=== PATIENT | female | born 1995 | race Two or more races ===

== ENCOUNTER 2020-11-14 12:08 | Emergency (ER) | payer MEDICAID ==
[~2020-11-14] VITALS: Ht 165.1 cm; Wt 69.9 kg
[2020-11-14 12:18] VITALS: BP 115/79
--- NOTE | 2020-11-14 12:24 | NUR ---
ED Nurse Note: Patient from home and walked in due to abscess on her right inner thigh x 1 month. Pt also c/o vaginal disharge x 1 month. Pt is AAO x4, ambulatory.
[2020-11-14 12:54] LABS: APPEARANCE,URINE SLIGHTLY CLOUDY; BILIRUBIN, URINE NEGATIVE (NEGATIVE); COLOR,URINE PALE YELLOW; GLUCOSE, URINE (UA) NEGATIVE (NEGATIVE); KETONES,URINE NEGATIVE (NEGATIVE); LEUKOCYTE ESTERASE ,URINE 1+ (NEGATIVE); NITRITE,URINE NEGATIVE (NEGATIVE); PH,URINE 6.5 (4.5-8.0); PROTEIN,URINE NEGATIVE (NEGATIVE); UROBILINOGEN,URINE NORMAL MG/DL (0.0-1.0)
[2020-11-14] MEDS ORDERED: Lidocaine 1% MPF 10mg/ml 5ml INJ ONE (13:30)
[2020-11-14] MEDS ORDERED: cefTRIAXone 500mg Inj IM ONE (13:30)
--- NOTE | 2020-11-14 13:57 | Emergency Room Report ---
History of Present Illness General Chief Complaint: Skin Rash/Abscess Source: Patient Present Illness HPI 25 YO female presents to the ED c/o /10 pain, swelling, and erythema of right groin area x 1 month. Pt. reports this has happened in the past and usually resolves on its own. Pt. reports this time abscess improved but became "hard" and never went away. Pt. also is complaining of vaginal DC x 2 weeks. Pt. denies recent abx use. She denies open sores/lesions, rashes, swollen tender lymph nodes. Patient denies suspicion of STI. She denies or suspicion of . She denies pelvic pain. She denies abdominal pain or tenderness. She denies nausea, vomiting, fevers or chills. She denies dysuria, hematuria, urinary frequency or urgency. She reports she has just been applying warm compresses at home. Allergies: Coded Allergies: No Known Allergies (Unverified , 11/14/20) COVID-19 Screening Contact w/high risk pt: No Experienced COVID-19 symptoms?: No COVID-19 Testing performed [employer] OPERATOR: No Patient History Past Medical History: see triage record Past Surgical History: none Pertinent Family History: none Last Menstrual Period: 10/31/20 Now: No Reviewed Nursing Documentation: PMH: Agreed; PSxH: Agreed Nursing Documentation-PMH Past Medical History: No Stated History Review of Systems All Other Systems: negative except mentioned in HPI Physical Exam Vital Signs Date Time Temp Pulse Resp B/P (MAP) Pulse Ox O2 Delivery O2 Flow Rate FiO2 11/14/20 12:18 98.4 91 17 115/79 (91) 97 Room Air Sp02 EP Interpretation: reviewed, normal General Appearance: no apparent distress, alert, GCS 15, non-toxic Head: normocephalic, atraumatic Eyes: bilateral eye normal inspection, bilateral eye PERRL ENT: hearing grossly normal, normal voice Neck: full range of motion Respiratory: lungs clear, normal breath sounds, speaking full sentences Cardiovascular #1: regular rate, rhythm Gastrointestinal: non tender, soft Genitourinary: normal inspection, no CVA tenderness, other - 1.25cm indurated right groin abscess that is linear in shape and suspicious for either LGV or hydradenitis. NO palpable fluctuance, genital contains many scars presumably from previous abscess/ ingrown hairs. Pt. with out palpable lymph nodes. Musculoskeletal: normal range of motion, gait/station normal, non-tender Neurologic: alert, motor strength/tone normal, oriented x3, sensory intact, responsive, speech normal Psychiatric: judgement/insight normal Skin: other - 1.25cm indurated right groin abscess that is linear in shape and suspicious for either LGV or hydradenitis. NO palpable fluctuance, genital contains many scars presumably from previous abscess/ ingrown hairs. Pt. with out palpable lymph nodes. Lymphatic: no adenopathy Medical Decision Making PA Attestation Dr. Cano is my supervising Physician whom patient management has been discussed with. Diagnostic Impression: Primary Impression: Vaginal discharge Additional Impressions: Abscess Vulval hidradenitis suppurativa ER Course 25 YO female presents to the ED c/o 02/02 pain, swelling, and erythema of right groin area x 1 month. Pt. reports this has happened in the past and usually resolves on its own. Pt. reports this time abscess improved but became "hard" and never went away. Pt. also is complaining of vaginal DC x 2 weeks. Pt. denies recent abx use. She denies open sores/lesions, rashes, swollen tender lymph nodes. Patient denies suspicion of STI. She denies or suspicion of . She denies pelvic pain. She denies abdominal pain or tenderness. She denies nausea, vomiting, fevers or chills. She denies dysuria, hematuria, urinary frequency or urgency. She reports she has just been applying warm compresses at home. Ddx considered but are not limited to cellulitis, abscess, cystic acne, necrotizing fasciitis, insect bite, STI, or LGV just to name a few. Vital signs: are WNL, pt. is afebrile. H&PE are most consistent with 1.25cm indurated right groin abscess that is linear in shape and suspicious for either LGV or hydradenitis. NO palpable fluctuance, genital contains many scars presumably from previous abscess/ ingrown hairs. Pt. with out palpable lymph nodes. ORDERS: [place] : Unremarkable ED INTERVENTIONS: - 500mg Rocephin IM DISCHARGE: At this time pt. is stable for d/c to home. Will provide printed patient care instructions, and any necessary prescriptions. Care plan and follow up instructions have been discussed with the patient prior to discharge. Labs Test 11/14/20 12:45 Urine Color Pale yellow Urine Appearance Slightly cloudy Urine pH 6.5 (4.5-8.0) Urine Specific Nelson 1.010 (1.005-1.035) Urine Protein Negative (NEGATIVE) Urine Glucose (UA) Negative (NEGATIVE) Urine Ketones Negative (NEGATIVE) Urine Blood 1+ (NEGATIVE) Urine Nitrite Negative (NEGATIVE) Urine Bilirubin Negative (NEGATIVE) Urine Urobilinogen Normal MG/DL (0.0-1.0) Urine Leukocyte Esterase 1+ (NEGATIVE) Urine RBC 0-2 /HPF (0 - 2) Urine WBC 0-2 /HPF (0 - 2) Urine Squamous Epithelial Cells Moderate /LPF (NONE/OCC) Urine Bacteria Few /HPF (NONE) Urine Mucus Occasional /LPF Urine HCG, Qualitative Negative (NEGATIVE) Last Vital Signs Date Time Temp Pulse Resp B/P (MAP) Pulse Ox O2 Delivery O2 Flow Rate FiO2 11/14/20 12:18 98.4 91 17 115/79 97 Room Air Disposition: HOME, SELF-CARE Condition: Stable Scripts Fluconazole* (DIFLUCAN*) 200 Mg Tablet 200 MG ORAL DAILY for 2 Days, #2 TAB 0 Refills Prov: Manuela Thorne 11/14/20 Doxycycline Hyclate* (VIBRAMYCIN*) 100 Mg Capsule 100 MG ORAL EVERY 12 HOURS for 7 Days, #14 CAP 0 Refills Prov: Manuela Thorne 11/14/20 Referrals: [facility]ERR[facility] (PCP) Patient Instructions: Abscess, Hidradenitis Suppurativa Additional Instructions: Take medications as directed. Take Diflucan after completing doxycycline pills. Follow up with a Primary Care Provider in 3-5 days, even if your symptoms have resolved. Return sooner to ED if new symptoms occur, or current symptoms become worse. - Please note that this Emergency Department Report was dictated using [employer] seat p[employer] technology software, occasionally this can lead to erroneous entry secondary to interpretation by the dictation equipment. Manuela Thorne Nov 14, 2020 13:57
[2020-11-14] MEDS ORDERED: DIFLUCAN200 MG ORAL (13:59)
[2020-11-14] MEDS ORDERED: VIBRAMYCIN100 MG ORAL (13:59)
[2020-11-14 14:05] VITALS: BP 122/83
--- NOTE | 2020-11-14 14:05 | NUR ---
ED Nurse Note: Pt cleared by health care Provider for discharge. DC instructions/prescription were given and explained to pt and verbalized understanding of teachings. All medical devices such as ID band removed. Pt is AAO x4, ambulatory and left with all personal belongings.
== END 2020-11-14 14:05 | disposition home or self-care (01) ==
LOC: EMR 13:23
DX: L73.2 Hidradenitis suppurativa (principal); L02.214 Cutaneous abscess of groin; N89.8 Other specified noninflammatory disorders of vagina
CPT/HCPCS: 81003; 81025; 87210; 96372; J0696; Z7502; 99283